=== PATIENT | female | born 1985 | race Caucasian/White ===

== ENCOUNTER 2017-07-28 21:03 | Emergency (ER) | payer SELFPAY ==
[~2017-07-28] VITALS: Ht 170.1 cm; Wt 61.2 kg
[2017-07-28] MEDS ORDERED: ENSKYCE 28 TAB1 EACH PO (21:11)
[2017-07-28] MEDS ORDERED: VITAMIN C1000 M5 PO (21:12)
[2017-07-28] MEDS ORDERED: CYCLOBENZAPRINE5 M3 PO (22:55)
[2017-07-28] MEDS ORDERED: Motrin,Rufen800 MG PO (22:55)
== END 2017-07-28 22:42 | disposition home or self-care (01) ==
LOC: ED 21:03
DX: S50.01XA Contusion of right elbow, initial encounter (principal); S80.02XA Contusion of left knee, initial encounter; S39.012A Strain of muscle, fascia and tendon of lower back, initial encounter; Z79.899 Other long term (current) drug therapy; W00.2XXA Other fall from one level to another due to ice and snow, initial encounter; Y93.89 Activity, other specified; Y92.89 Other specified places as the place of occurrence of the external cause; Y99.8 Other external cause status

== ENCOUNTER → 2025-05-03 | Outpatient (CLI) | payer OTHER ==
[~2025-05-03] MED LIST: CYCLOBENZAPRINE5 M3 PO; ENSKYCE 28 TAB1 EACH PO; Motrin,Rufen800 MG PO; VITAMIN C1000 M5 PO
[2025-05-03 08:20] LABS: MEAN CELL VOLUME 93.1 fl (81.0-99.0); MEAN CORPUSCULAR HGB 30.7 pg (27.0-31.0); MEAN PLATELET VOLUME 10.0 fl (9.6-12.3); NUCLEATED RED BLOOD CELL 0.0 % (0.0-0.0); NUCLEATED RED BLOOD CELL 0.0 10*3/uL (0.0-0.0); PLATELET COUNT AUTOMATED 223.0 10*3/uL (130-400); RED CELL DISTRI WIDTH 12.4 % (0-14.5)
[2025-05-03 08:56] LABS: BUN 15 mg/dl (9-23); FREE T4 1.22 ng/dl (0.89-1.76); LDL CHOLESTEROL 83 mg/dL (9-159); SGPT/ALT 21 U/L (5-49); VITAMIN D, 25-HYDROXY 71.0 ng/mL (30-100)
== END | disposition home or self-care (01) ==
LOC: LAB 07:56
PROVIDERS: ATTEND Family Medicine
DX: E55.9 Vitamin D deficiency, unspecified (principal); F41.1 Generalized anxiety disorder; F43.89 Other reactions to severe stress; Z13.220 Encounter for screening for lipoid disorders; D50.9 Iron deficiency anemia, unspecified